=== PATIENT | male | born 1975 ===

== ENCOUNTER 2020-03-30 07:25 | Emergency (ER) | payer SELFPAY ==
[2020-03-30 07:33] VITALS: BP 129/84
--- NOTE | 2020-03-30 09:22 | Emergency Department Report ---
Chief Complaint: Skin Rash Stated Complaint: POSS BITE ON (L) ARM Time Seen by Provider: 03/30/20 09:20 - HPI History of Present Illness: Is a pleasant 44-year-old male presents emergency department chief complaint itchy rash to the right medial wrist. This is a for 2 days. Patient denies any injuries. He thinks he may been bitten by an insect but is not sure. Not when is a bite. He denies any known past medical history, current medications or nausea medications. Immunizations are up-to-date. Patient denies any associated fever, chills, night sweats, headache, dizziness, blurry vision, nausea, vomiting, diarrhea, chest pain, shortness of breath. - ROS Review of Systems: See HPI - Exam Vital Signs: Vital Signs 03/30/20 07:30 Temperature 98.2 F Pulse Rate 70 Respiratory 18 Rate Blood Pressure 129/84 O2 Sat by Pulse 98 Oximetry Physical Exam: GENERAL APPEARANCE: Well-developed, well-nourished, no acute distress HEENT: Normocephalic and atraumatic. No scleral icterus. Pupils are equal, round, and reactive to light and accommodation. No conjunctival injection is noted. Oropharynx is clear. Mouth revealed good dentition, no lesions. Tympanic membranes are clear. NECK: Supple. Trachea is midline. No evidence of thyroid enlargement. No lymphadenopathy or tenderness. CHEST: Symmetric. Nontender to palpation. LUNGS: Breath sounds are equal and clear bilaterally. No wheezes, rhonchi, or rales. HEART: Regular rate and rhythm with normal S1 and S2. No murmurs, gallops, or rubs. BREASTS: Symmetrical. No skin or nipple retractions. No nipple discharges or masses. ABDOMEN: Soft, flat, and benign. No mass, tenderness, guarding, or rebound. No organomegaly or hernia. Bowel sounds are present. No CVA tenderness or flank mass. GENITOURINARY: Deferred RECTAL: Deferred EXTREMITIES: No cyanosis, clubbing, or edema. No lower extreme edema, negative Homans sign bilaterally NEUROLOGIC: No focal sensory or motor deficits are noted. Gait is normal. Cranial nerves II through XII are intact. Deep tendon reflexes are intact. PSYCHIATRIC: The patient is awake, alert, and oriented x3. Recent and remote memory is intact. Appropriate mood and affect. SKIN: Warm, dry, and well perfused. Good turgor. No lesions, nodules. There is a mild 1 cm scaly rash to the medial left forearm. No induration ecchymosis or crepitus. No tenderness palpation. LYMPHATICS: No cervical, axillary, or groin adenopathy is noted. MSE screening note: Focused history and physical exam performed. Due to findings the following was ordered: Patient nontoxic in no acute distress. Vitals are stable. Patient has what appears to be a mild allergic contact dermatitis. I recommended 1% hydrocortisone [id number] follow-up outpatient with his primary care doctor. Patient will be emeses at this time. No further work-up indicated. ED Disposition for MSE Condition: Stable
== END 2020-03-30 09:25 | disposition left against medical advice (07) ==
LOC: ED 07:25
DX: L23.9 Allergic contact dermatitis, unspecified cause (principal)
CPT/HCPCS: 99281